=== PATIENT | female | born 1995 | race Caucasian/White ===

== ENCOUNTER 2023-06-01 16:19 | Emergency (ER) | payer OTHER ==
[~2023-06-01] VITALS: Ht 160 cm; Wt 58.0 kg
[2023-06-01 16:47] VITALS: BP 123/73; PULSE 89; RESP 18; TEMP 98.3; O2SAT 99
[2023-06-01] MEDS ORDERED: CETI-338 PO (17:50)
[2023-06-01] MEDS ORDERED: BENZ100C86 MT (17:50)
== END 2023-06-01 18:23 | disposition home or self-care (01) ==
LOC: ER 16:19
DX: J02.9 Acute pharyngitis, unspecified (principal); R05.9 Cough, unspecified; B34.9 Viral infection, unspecified; Z90.49 Acquired absence of other specified parts of digestive tract
CPT/HCPCS: 99281